=== PATIENT | male | born 1955 | race Caucasian/White ===

== ENCOUNTER 2016-11-09 23:49 | Emergency (ER) | payer OTHER ==
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
--- NOTE | 2016-11-10 03:15 | ED ORDER SUMMARY ---
..... Patient: CHANEL SHELL OrderSheet [facility] VisitID: [id number] [address] [place] [address] 61y, M Registration Date/Time: 11/09/2016 ORDER SHEET Weight: 68.0 kg (stated) Allergies: Vancomycin GENERAL ORDERS: CT Abd/Pel w Cont (No) (PENDING) Urgent (00:11/10/2016 Dustin ROJAS) (Ack 0:26 AMcQuoid ER Tech1) (1:29 RFay) Cardiac Panel Stat (00:11/10/2016 Dustin ROJAS) (Ack 0:26 AMcQuoid ER Tech1) (1:06 HSoule) Lipase Urgent (00:11/10/2016 Dustin ROJAS) (Ack 0:26 AMcQuoid ER Tech1) (1:06 HSoule) Amylase Urgent (00:11/10/2016 Dustin ROJAS) (Ack 0:26 AMcQuoid ER Tech1) (1:06 HSoule) Ethyl Alcohol Urgent (00:11/10/2016 Dustin ROJAS) (Ack 0:26 AMcQuoid ER Tech1) (1:06 HSoule) MEDICATION ORDERS: IV FLUIDS: IV NS : initial bolus 250 mL (1000 mL/hr), then 125 mL/hr for 4h (NOW); Routine (00:11/10/2016 Dustin ROJAS) (Ack 0:33 HSoule) (0:41 HSoule) Dilaudid IV 0.5 mg (NOW) (00:11/10/2016 Dustin ROJAS) (Ack 0:27 HSoule) (0:34 HSoule) Ativan IV 0.5 mg (NOW) (00:11/10/2016 Dustin ROJAS) (Ack 0:27 HSoule) (0:34 HSoule) Dilaudid IV 0.5 mg (NOW) (01:37 11/10/2016 Dustin ROJAS) (Ack 1:40 HSoule) (1:47 HSoule) Ativan IV 0.5 mg (NOW) (01:38 11/10/2016 Dustin ROJAS) (Ack 1:40 HSoule) (1:47 HSoule) Thiamine IV 100 mg (NOW, 100 mg Add to IV solution) (02:47 11/10/2016 Dustin ROJAS) (2:50 HSoule) ORDER SHEET NOTES: [Electronically signed by Yuridia Hairston (04:09 11/10/2016)] [Electronically signed by Juan Miguel Villanueva MD (23:41 11/12/2016)] [Electronically locked/signed by Yuridia Hairston (04:09 11/10/2016)]
--- NOTE | 2016-11-10 03:15 | ED ORDER SUMMARY ---
..... Patient: CHANEL SHELL OrderSheet [facility] VisitID: [id number] [address] [place] [address] 61y, M Registration Date/Time: 11/09/2016 ORDER SHEET Weight: 68.0 kg (stated) Allergies: Vancomycin GENERAL ORDERS: CT Abd/Pel w Cont (No) (PENDING) Urgent (00:11/10/2016 Dustin ROJAS) (Ack 0:26 AMcQuoid ER Tech1) (1:29 RFay) Cardiac Panel Stat (00:11/10/2016 Dustin ROJAS) (Ack 0:26 AMcQuoid ER Tech1) (1:06 HSoule) Lipase Urgent (00:11/10/2016 Dustin ROJAS) (Ack 0:26 AMcQuoid ER Tech1) (1:06 HSoule) Amylase Urgent (00:11/10/2016 Dustin ROJAS) (Ack 0:26 AMcQuoid ER Tech1) (1:06 HSoule) Ethyl Alcohol Urgent (00:11/10/2016 Dustin ROJAS) (Ack 0:26 AMcQuoid ER Tech1) (1:06 HSoule) MEDICATION ORDERS: IV FLUIDS: IV NS : initial bolus 250 mL (1000 mL/hr), then 125 mL/hr for 4h (NOW); Routine (00:11/10/2016 Dustin ROJAS) (Ack 0:33 HSoule) (0:41 HSoule) Dilaudid IV 0.5 mg (NOW) (00:11/10/2016 Dustin ROJAS) (Ack 0:27 HSoule) (0:34 HSoule) Ativan IV 0.5 mg (NOW) (00:11/10/2016 Dustin ROJAS) (Ack 0:27 HSoule) (0:34 HSoule) Dilaudid IV 0.5 mg (NOW) (01:37 11/10/2016 Dustin ROJAS) (Ack 1:40 HSoule) (1:47 HSoule) Ativan IV 0.5 mg (NOW) (01:38 11/10/2016 Dustin ROJAS) (Ack 1:40 HSoule) (1:47 HSoule) Thiamine IV 100 mg (NOW, 100 mg Add to IV solution) (02:47 11/10/2016 Dustin ROJAS) (2:50 HSoule) ORDER SHEET NOTES: [Electronically signed by Yuridia Hairston (04:09 11/10/2016)] [Electronically signed by Juan Miguel Villanueva MD (23:41 11/12/2016)] [Electronically locked/signed by Yuridia Hairston (04:09 11/10/2016)]
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
--- NOTE | 2016-11-10 06:26 | DIAGNOSTIC IMAGING REPORT ---
PROCEDURE: CT ABD/PELVIS WITH CONTRAST INDICATION: Left abdominal pain after shower fall. TECHNIQUE: 125 ml of Isovue 300 were injected intravenously and axial images were obtained of the entire abdomen and pelvis with sagittal and coronal reformations. Preliminary report provided by Ilan Tony MD ([facility]) COMPARISON: None. FINDINGS: ABDOMEN: Moderate hepatomegaly with geographic fatty infiltration of the liver. Cholelithiasis small gallstones in the gallbladder fundus. Marked calcified atheromatous changes aorta and iliac vessels. Spleen, pancreas, and aorta are normal. Bowel pattern is normal. Mild to moderate degenerate change of the lumbar spine. PELVIS: Moderate enlargement prostate (5.5 cm) . Mild distention of the urinary bladder. IMPRESSION: 1. Moderate hepatomegaly with geographic fatty infiltration of the liver. Correlation with liver function studies is recommended. 2. Cholelithiasis (small calcified stones gallbladder fundus). 3. Mild distention of the urinary bladder with moderate enlargement prostate (5.5 cm). 4. No evidence of an acute abdominal injury. 5. Findings discussed with Dr. Juan Miguel Villanueva. All CT scans at this facility use dose modulation, iterative reconstruction, and/or weight-based dosing when appropriate to reduce radiation dose to as low as reasonably achievable.
--- NOTE | 2016-11-10 06:26 | DIAGNOSTIC IMAGING REPORT ---
PROCEDURE: CT ABD/PELVIS WITH CONTRAST INDICATION: Left abdominal pain after shower fall. TECHNIQUE: 125 ml of Isovue 300 were injected intravenously and axial images were obtained of the entire abdomen and pelvis with sagittal and coronal reformations. Preliminary report provided by Ilan Tony MD ([facility]) COMPARISON: None. FINDINGS: ABDOMEN: Moderate hepatomegaly with geographic fatty infiltration of the liver. Cholelithiasis small gallstones in the gallbladder fundus. Marked calcified atheromatous changes aorta and iliac vessels. Spleen, pancreas, and aorta are normal. Bowel pattern is normal. Mild to moderate degenerate change of the lumbar spine. PELVIS: Moderate enlargement prostate (5.5 cm) . Mild distention of the urinary bladder. IMPRESSION: 1. Moderate hepatomegaly with geographic fatty infiltration of the liver. Correlation with liver function studies is recommended. 2. Cholelithiasis (small calcified stones gallbladder fundus). 3. Mild distention of the urinary bladder with moderate enlargement prostate (5.5 cm). 4. No evidence of an acute abdominal injury. 5. Findings discussed with Dr. Juan Miguel Villanueva. All CT scans at this facility use dose modulation, iterative reconstruction, and/or weight-based dosing when appropriate to reduce radiation dose to as low as reasonably achievable.
--- NOTE | 2016-11-12 23:41 | ED MAR SUMMARY ---
..... Medication Administration Record [facility] [address] [place] [address] Patient: CHANEL SHELL Visit ID: [id number] 61y, M Weight: 68.0 kg Height/Length: 71 in BMI: 20.9 ALLERGIES: Vancomycin Given 00:29 11/10/2016 Yuridia Hairston, Medication Administered: DILAUDID [IVP] (HYDROMORPHONE HCL PF), Dose: 0.5 mg IVP over 1 minute(s), Site: #1 right forearm. Medication Ordered: Dilaudid IV 0.5 mg (NOW). Given 00:34 11/10/2016 Yuridia Hairston, Medication Administered: ATIVAN [IVP] (LORAZEPAM), Dose: 0.5 mg IVP over 1 minute(s), Site: #1 right forearm. Medication Ordered: Ativan IV 0.5 mg (NOW). Start 00:41 11/10/2016 Yuridia Hairston,, Stop 03:15 11/10/2016 Yuridia Hairston, Medication Administered: IV NS (SALINE), Dose: IV Fluids over 15 minute(s), Rate: 1000 mL/hr, Dispensed: 1000 mL bag, Site: #1 right forearm. Medication Ordered: IV NS : initial bolus 250 mL (1000 mL/hr), then 125 mL/hr for 4h (NOW); Routine. Given 01:47 11/10/2016 Yuridia Hairston, Medication Administered: DILAUDID [IVP] (HYDROMORPHONE HCL PF), Dose: 0.5 mg IVP over 1 minute(s), Site: #1 right forearm. Medication Ordered: Dilaudid IV 0.5 mg (NOW). Given 01:47 11/10/2016 Yuridia Hairston, Medication Administered: ATIVAN [IVP] (LORAZEPAM), Dose: 0.5 mg IVP over 1 minute(s), Site: #1 right forearm. Medication Ordered: Ativan IV 0.5 mg (NOW). Given 02:50 11/10/2016 Yuridia Hairston, Medication Administered: THIAMINE [IVP] (VITAMIN B-1), Dose: 100 mg IVP over 10 minute(s), Site: #1 right forearm. Medication Ordered: Thiamine IV 100 mg (NOW, 100 mg Add to IV solution).
--- NOTE | 2016-11-12 23:41 | ED MAR SUMMARY ---
..... Medication Administration Record [facility] [address] [place] [address] Patient: CHANEL SHELL Visit ID: [id number] 61y, M Weight: 68.0 kg Height/Length: 71 in BMI: 20.9 ALLERGIES: Vancomycin Given 00:29 11/10/2016 Yuridia Hairston, Medication Administered: DILAUDID [IVP] (HYDROMORPHONE HCL PF), Dose: 0.5 mg IVP over 1 minute(s), Site: #1 right forearm. Medication Ordered: Dilaudid IV 0.5 mg (NOW). Given 00:34 11/10/2016 Yuridia Hairston, Medication Administered: ATIVAN [IVP] (LORAZEPAM), Dose: 0.5 mg IVP over 1 minute(s), Site: #1 right forearm. Medication Ordered: Ativan IV 0.5 mg (NOW). Start 00:41 11/10/2016 Yuridia Hairston,, Stop 03:15 11/10/2016 Yuridia Hairston, Medication Administered: IV NS (SALINE), Dose: IV Fluids over 15 minute(s), Rate: 1000 mL/hr, Dispensed: 1000 mL bag, Site: #1 right forearm. Medication Ordered: IV NS : initial bolus 250 mL (1000 mL/hr), then 125 mL/hr for 4h (NOW); Routine. Given 01:47 11/10/2016 Yuridia Hairston, Medication Administered: DILAUDID [IVP] (HYDROMORPHONE HCL PF), Dose: 0.5 mg IVP over 1 minute(s), Site: #1 right forearm. Medication Ordered: Dilaudid IV 0.5 mg (NOW). Given 01:47 11/10/2016 Yuridia Hairston, Medication Administered: ATIVAN [IVP] (LORAZEPAM), Dose: 0.5 mg IVP over 1 minute(s), Site: #1 right forearm. Medication Ordered: Ativan IV 0.5 mg (NOW). Given 02:50 11/10/2016 Yuridia Hairston, Medication Administered: THIAMINE [IVP] (VITAMIN B-1), Dose: 100 mg IVP over 10 minute(s), Site: #1 right forearm. Medication Ordered: Thiamine IV 100 mg (NOW, 100 mg Add to IV solution).
--- NOTE | 2016-11-12 23:41 | ED MED RECONCILIATION SUMMARY ---
Patient: CHANEL SHELL Medication Reconciliation Report [facility] VisitID: [id number] [address] [place] [address] 61y, M Registration Date/Time: 11/09/2016 Weight: 68.0 kg Height/Length: 71 in. BMI: 20.9 ALLERGIES: Vancomycin The patient's Home Medications are listed below: NONE. The source(s) of the original Home Medication information: patient The following Medications were given to the patient in the Emergency Department: Dilaudid [IVP] IVP 0.5 mg, administered: 11/10/2016 12:29:00 AM Ativan [IVP] IVP 0.5 mg, administered: 11/10/2016 12:34:00 AM IV NS IV Fluids bolus 0, then 1000 mL/hr, administered: 11/10/2016 12:41:00 AM Dilaudid [IVP] IVP 0.5 mg, administered: 11/10/2016 1:47:00 AM Ativan [IVP] IVP 0.5 mg, administered: 11/10/2016 1:47:00 AM Thiamine [IVP] IVP 100 mg, administered: 11/10/2016 2:50:00 AM The following Medications were prescribed to the patient: Motrin (available over the counter): take according to label instructions. -- Juan Miguel Villanueva MD KCL 20 meq po q day for 3 days. -- Juan Miguel Villanueva MD
--- NOTE | 2016-11-12 23:41 | ED DISCHARGE INSTRUCTIONS ---
Patient: CHANEL SHELL General Instructions [facility] VisitID: [id number] [place] [address] 61y, M Registration Date/Time: 11/09/2016 Contusion to the left posterior chest. Fall on same level by slipping. Chronic alcoholic liver disease with fatty liver. Uncomplicated alcohol intoxication with alcohol dependence. Alcohol related hypokalemia and low magnesium . Alcohol related liver disease. INSTRUCTIONS Apply ice for 15-20 minutes three times a day for one days. No strenuous activity. (Take magnesium vitamin supplements.). Warnings: SEDATIVE MEDICATION: You were given sedative medication during your visit. Do not drive or operate dangerous machinery. GENERAL WARNINGS: Return or contact your physician immediately if your condition worsens or changes unexpectedly, if not improving as expected, or if other problems arise. Prescription Medications: KCL 20 meq po q day for 3 days. OTC Medications: Motrin (available over the counter): take according to label instructions. Follow-up: Follow up with your doctor in one week. Call for an appointment. Understanding of the discharge instructions verbalized by patient. ADDITIONAL INFORMATION Mechanical Fall You have had a fall today. It appears that the cause is mechanical. That means that you slipped, tripped or lost your balance. If your fall had been due to fainting or a seizure, further tests would be required. Home Care: Rest today and resume your normal activities when you are feeling back to normal. If you were injured during the fall, follow the advice from your doctor regarding care of your injury. You may use acetaminophen (Tylenol) or ibuprofen (Motrin, Advil) to control pain, unless another pain medicine was prescribed. [NOTE: If you have chronic liver or kidney disease or ever had a stomach ulcer or GI bleeding, talk with your doctor before using these medicines.] Fall Prevention: Was there anything that caused your fall that can be fixed, removed, or replaced? Make your home safe by keeping walkways clear of objects you may trip over. Use non-slip pads under rugs. Do not walk in poorly lit areas. Do not stand on chairs or wobbly ladders. Use caution when reaching overhead or looking upward. This position can cause a loss of balance. Be sure your shoes fit properly, have non-slip bottoms and are in good condition. Be cautious when going up and down curbs, and walking on uneven sidewalks. If your balance is poor, consider using a cane or walker. Stay as active as you can. Balance, flexibility, strength, and endurance all come from exercise. They all play a role in preventing falls. Follow Up with your doctor or as advised by our staff. Get Prompt Medical Attention if any of the following occur: Repeated mechanical falls, or unexplained falls Dizziness, fainting or seizure Severe headache Chest pain or shortness of breath Palpitations (very rapid or very slow or irregular heartbeat) Blood in vomit, stools (black or red color) Weakness of an arm or leg or one side of the face Difficulty with speech or vision Chest Contusion Acontusion is a bruise to the skin, muscle or ribs. It may cause pain, tenderness, swelling and a purplish discoloration. Contusions take a few days to a few weeks to heal. Home Care: Rest. You should not be doing any heavy lifting or strenuous exertion, or any activity that causes pain. You may use acetaminophen (Tylenol) or ibuprofen (Motrin, Advil) to control pain, unless another pain medicine was prescribed. [ NOTE: If you have chronic liver or kidney disease or ever had a stomach ulcer or GI bleeding, talk with your doctor before using these medicines.] Follow Up with your doctor during the next week or as directed. Get Prompt Medical Attention if any of the following occur: Shortness of breath Increasing chest pain with breathing Dizziness, weakness or fainting New or worsening of abdominal pain Fever of 100.4F (38C) or higher, or as directed by your healthcare provider Alcohol Intoxication Alcohol intoxication occurs when you drink alcohol faster than your liver can remove it from your system. Alcohol intoxication affects your judgment and coordination. Very high blood alcohol levels can cause coma, very slow breathing and even . If you drink alcohol every day, this may gradually cause permanent damage to your liver, brain, heart, pancreas and other organs. Alcohol use during may cause permanent damage to the growing baby. Home Care: Do not drink any more alcohol. DO NOT DRIVE until all effects of the alcohol have worn off. Get lots of rest over the next few days. Drink plenty of water and other non-alcoholic liquids. Try to eat regular meals. If you have been drinking heavily on a daily basis, you may go through alcohol withdrawl. This is also called the shakes or DTs. The usual symptoms last 3 to 4 days and may include nervousness, shakiness, nausea, sweating or sleeplessness. During this time, it is best that you stay with family or friends who can help and support you. You can also admit yourself to a residential detox program. If your symptoms are severe, contact your doctor for medicines to help. Follow Up: If alcohol is causing a problem in your life, these and other organizations can help you: Alcoholics Anonymous offers support through a self-help fellowship. There are no dues or fees. See the Yellow Pages and call for time and place of meetings. www.aa.org [employer] offers support to families of alcohol users. 714.219.4562 www.al-anon.org [employer] [place] On Alcoholism And Drug Dependence 384-153-9391 www.ncadd.org There are also inpatient or residential alcohol detox programs. Check the Internet or phonebook Yellow Pages under Drug Abuse & Treatment Centers. Get Prompt Medical Attention if any of the following occur: there) You have been given the following additional information: Fall, Mechanical Chest Wall Contusion Alcohol Intoxication No strenuous activity. (Electronically signed by Juan Miguel Villanueva MD 11/12/2016 23:41)
--- NOTE | 2016-11-12 23:41 | ED MED RECONCILIATION SUMMARY ---
Patient: CHANEL SHELL Medication Reconciliation Report [facility] VisitID: [id number] [address] [place] [address] 61y, M Registration Date/Time: 11/09/2016 Weight: 68.0 kg Height/Length: 71 in. BMI: 20.9 ALLERGIES: Vancomycin The patient's Home Medications are listed below: NONE. The source(s) of the original Home Medication information: patient The following Medications were given to the patient in the Emergency Department: Dilaudid [IVP] IVP 0.5 mg, administered: 11/10/2016 12:29:00 AM Ativan [IVP] IVP 0.5 mg, administered: 11/10/2016 12:34:00 AM IV NS IV Fluids bolus 0, then 1000 mL/hr, administered: 11/10/2016 12:41:00 AM Dilaudid [IVP] IVP 0.5 mg, administered: 11/10/2016 1:47:00 AM Ativan [IVP] IVP 0.5 mg, administered: 11/10/2016 1:47:00 AM Thiamine [IVP] IVP 100 mg, administered: 11/10/2016 2:50:00 AM The following Medications were prescribed to the patient: Motrin (available over the counter): take according to label instructions. -- Juan Miguel Villanueva MD KCL 20 meq po q day for 3 days. -- Juan Miguel Villanueva MD
== END 2016-11-10 03:20 | disposition home or self-care (01) ==
LOC: ED SRH 23:49
DX: S20.212A Contusion of left front wall of thorax, initial encounter (principal); K70.0 Alcoholic fatty liver; F10.20 Alcohol dependence, uncomplicated; E87.6 Hypokalemia; E83.42 Hypomagnesemia; W18.2XXA Fall in (into) shower or empty bathtub, initial encounter; Y93.E1 Activity, personal bathing and showering; Y99.9 Unspecified external cause status; Y92.009 Unspecified place in unspecified non-institutional (private) residence as the place of occurrence of the external cause; Z86.718 Personal history of other venous thrombosis and embolism
CPT/HCPCS: 90100; 90616; 92010; 92235; 92530; 92610; 92720; 95059